=== PATIENT | male | born 1930 | race Caucasian/White ===

== ENCOUNTER → 2016-09-15 | Outpatient (CLI) | payer MEDICARE ==
[~2016-09-15] MED LIST: ALFU10TA2 OR; ASPI325T5 PO; ATOR80TA41 PO; ATROVASTATIN PO; CALC667T OR; CO Q200C; FIBECAP2 OR; GARL1500 OR; SYNT50TA OR; TAB-TAB PO; [UNRECOGNIZED DRUG - OTHER] EACH EYE; [UNRECOGNIZED DRUG - OTHER] PO; [UNRECOGNIZED DRUG - OTHER] PO
--- NOTE | 2016-09-20 09:36 | RSPPFT ---
DATE OF PROCEDURE: 09/15/16 COMMENTS: Spirometry with FVC of 2.6 predicted 4.2, FEV1 of 1.8 predicted 2.9, FEV1/FVC ratio 67% predicted 70%. No significant changes noted following acutely inhaled bronchodilator. IMPRESSION: On the basis of the above, patient has a mild obstructive defect. A restrictive component may be co-existing and full lung volumes would be necessary for further clarification if clinically indicated.
== END ==
LOC: HRSP 07:47
PROVIDERS: ATTEND Internal Medicine Pulmonary Disease
DX: J44.9 Chronic obstructive pulmonary disease, unspecified (principal)
CPT/HCPCS: 94060